=== PATIENT | male | born 1990 ===

== ENCOUNTER 2017-11-16 13:59 | Emergency (ER) | payer MEDICAID, OTHER ==
[2017-11-16 14:14] VITALS: O2SAT 100
--- NOTE | 2017-11-16 14:55 | C.PDOC ---
History Of Present Illness 27 year old male, whose PMHx includes heroin abuse, presents to the ED for evaluation of "body tightness" which gradually developed two hours prior to arrival. Patient states his last dose of heroin was last night. Patient decided to take Suboxone at around noon today. Otherwise, patient denies weakness, headache, dizziness, chest pain, SOB, dyspnea, palpitation, abdominal pain, vomiting, diarrhea, suicidal/homicidal ideation. Ambulatory in Ed with stable gait, not in any apparent distress. Time Seen by Provider: 11/16/17 14:06 Chief Complaint (Nursing): Substance Abuse History Per: Patient History/Exam Limitations: no limitations Onset/Duration Of Symptoms: Hrs (2) Current Symptoms Are (Timing): Still Present Suicide/Self Injury Attempted (Context): None Modifying Factor(s): Narcotics (heroin) Associated Symptoms: denies: Suicidal Thoughts, Suicidal Plan Involuntary Hold By: None Additional History Per: Patient Past Medical History Reviewed: Historical Data, Nursing Documentation, Vital Signs Vital Signs: Last Vital Signs Temp 99.6 F 11/16/17 15:20 Pulse 87 11/16/17 15:20 Resp 18 11/16/17 15:20 BP 113/70 11/16/17 15:20 Pulse Ox 100 11/16/17 15:20 - Medical History PMH: No Chronic Diseases Denies: Chronic Kidney Disease Surgical History: No Surg Hx Family History: States: Unknown Family Hx - Social History Hx Alcohol Use: No Hx Substance Use: Yes - Immunization History Hx Tetanus Toxoid Vaccination: Yes Hx Influenza Vaccination: No Hx Pneumococcal Vaccination: No Review Of Systems Gastrointestinal: Negative for: Nausea, Vomiting, Abdominal Pain Neurological: Negative for: Weakness, Headache, Dizziness Psych: Positive for: Other (heroin and suboxone use ). Negative for: Suicidal ideation Physical Exam - Physical Exam Appears: Well, Non-toxic, No Acute Distress Skin: Normal Color, Warm, Dry, No Rash Head: Atraumatic, Normacephalic Eye(s): bilateral: PERRL, EOMI Nose: No Flaring, No Discharge Oral Mucosa: Moist, No Drooling Tongue: Normal Appearing Lips: Normal Appearing Throat: No Erythema, No Drooling Neck: Trachea Midline, Supple Cardiovascular: Rhythm Regular, No Friction Rub, No Murmur, No JVD Respiratory: No Decreased Breath Sounds, No Accessory Muscle Use, No Stridor, No Wheezing Gastrointestinal/Abdominal: Soft, No Tenderness, No Distention, No Guarding Back: No CVA Tenderness Extremity: Normal ROM, No Deformity, No Swelling Neurological/Psych: Oriented x3, Normal Speech, Normal Motor, Normal Sensation, Normal Reflexes ED Course And Treatment O2 Sat by Pulse Oximetry: 100 (on RA) Pulse Ox Interpretation: Normal Progress Note: On re-evaluation, pt is afebrile, hemodynamicaly stable. NOn- toxic. Ambulatory in ED with stable gait. PulsEOx 100 % rA. ENT: no acute findings. Neck: SUpple, (-) JVD, (-) carotid bruits B?L. Lungs: CTA B/L, BS equal B/L. CVS: (+)S1S2, reg. ABd: benign. Neuorlogicaly intact. Pt has clinical findings c/w opioid withdrawal. Pt advised and ref. to F/u with detox in 1-2 days for re-eval. return if any new changes. Disposition Counseled Patient/Family Regarding: Diagnosis, Need For Followup - Disposition Referrals: [facility] [Outside] Disposition: HOME/ ROUTINE Disposition Time: 14:40 Condition: STABLE Additional Instructions: CALL DETOX [phone] FOR BED AVAILABILITY ENCOURAGE FLUIDS FOLLOW UP WITH PMD IN 2-3 DAYS FOR RE-EVALUATION. RETURN IF ANY WORSENING OR NEW CHANGES. Instructions: Drug Abuse and Drug Addiction (DC), Drug Withdrawal (DC) Forms: [employer] [place] (Swazi) - Clinical Impression Clinical Impression: Drug dependence, Opioid withdrawal - PA / PASTING INSPECTOR / Resident Statement MD/DO has reviewed & agrees with the documentation as recorded. - Scribe Statement The provider has reviewed the documentation as recorded by the Scribe (Kamilah Jones) All medical record entries made by the Scribe were at my direction and personally dictated by me. I have reviewed the chart and agree that the record accurately reflects my personal performance of the history, physical exam, medical decision making, and the department course for this patient. I have also personally directed, reviewed, and agree with the discharge instructions and disposition.
[2017-11-16 15:25] VITALS: BP 113/70; PULSE 87; RESP 18; TEMP 99.6
== END 2017-11-16 15:20 | disposition home or self-care (01) ==
LOC: C.ER 13:59
DX: F11.23 Opioid dependence with withdrawal (principal)